=== PATIENT | female | born 1980 | race Caucasian/White ===

== ENCOUNTER 2018-02-26 07:12 | Emergency (ER) | payer BC, MEDICAID ==
[2018-02-26 07:28] VITALS: BP 121/86
--- NOTE | 2018-02-26 08:06 | ED ---
Throat Pain/Nasal Congestion - HPI Summary HPI Summary: positive history of sore throat for the last several days No fever or chills. able to drink liquids - History of Current Complaint Chief Complaint: UCRespiratory Hx Obtained From: Patient Onset/Duration: Lasting Days Severity: Moderate Associated Signs And Symptoms: Positive: Negative - Epiglottits Risk Factors Epiglottis Risk Factors: Negative - Allergies/Home Medications Allergies/Adverse Reactions: Allergies Allergy/AdvReac Type Severity Reaction Status Date / Time No Known Allergies Allergy Verified 02/26/18 07:19 Home Medications: Home Medications Atorvastatin* [Lipitor*] 10 mg PO DAILY 02/26/18 [History Confirmed 02/26/18] Ibuprofen TAB* [Advil TAB*] 400 mg PO Q6H PRN 02/26/18 [History Confirmed ] Norgestimate-Ethinyl Estradiol [Sprintec 28 0.25-35 mg-Mcg] 1 tab PO DAILY 02/26 [History Confirmed 02/26/18] Omeprazole CAP* [Prilosec CAP* 20 MG] 20 mg PO DAILY 02/26/18 [History Confirmed 02/26/18] PMH/Surg Hx/FS Hx/Imm Hx Previously Healthy: Yes - Cancer History Hx Chemotherapy: No Hx Radiation Therapy: No - Surgical History Surgery Procedure, Year, and Place: 2 C-SECTIONS. RUPTURED APPENDEX Infectious Disease History: No Infectious Disease History: Denies: Traveled Outside the [place] in Last 30 Days - Social History Alcohol Use: Occasionally Substance Use Type: Reports: None Smoking Status (MU): Former Smoker Review of Systems Constitutional: Negative Eyes: Negative ENT: Negative Cardiovascular: Negative Respiratory: Negative Gastrointestinal: Negative Genitourinary: Negative Musculoskeletal: Negative Skin: Negative Neurological: Negative Psychological: Normal All Other Systems Reviewed And Are Negative: Yes Physical Exam Triage Information Reviewed: Yes Vital Signs On Initial Exam: Initial Vitals Temp Pulse Resp BP Pulse Ox 36.4 C 85 16 121/86 98 02/26/18 07:22 02/26/18 07:22 02/26/18 07:22 02/26/18 07:22 02/26/18 07:22 Vital Signs Reviewed: Yes Appearance: Positive: Well-Appearing Skin: Positive: Warm, Dry Head/Face: Positive: Normal Head/Face Inspection Eyes: Positive: Normal ENT: Positive: Pharyngeal erythema Neck: Positive: Supple Respiratory/Lung Sounds: Positive: Clear to Auscultation Cardiovascular: Positive: Normal Abdomen Description: Positive: Nontender Bowel Sounds: Positive: Present Diagnostics - Vital Signs Vital Signs Temp Pulse Resp BP Pulse Ox 02/26/18 07:22 36.4 C 85 16 121/86 98 - Laboratory Lab Results: Lab Results 02/26/18 Range/Units 07:39 Group A Strep Rapid Positive A (Negative) Lab Statement: Any lab studies that have been ordered have been reviewed, and results considered in the medical decision making process. EENT Course/Dx - Diagnoses Provider Diagnoses: Strep pharyngitis Provider Diagnoses: (Ruled Out): Strep pharyngitis with scarlet fever Discharge - Sign-Out/Discharge Documenting (check all that apply): Patient Departure All imaging exams completed and their final reports reviewed: Yes - Discharge Plan Condition: Good Disposition: HOME Prescriptions: Cephalexin CAP* [Keflex 500 CAP*] 500 mg PO TID #30 cap Patient Education Materials: Strep Throat (DC) Referrals: Alexander Priest MD [Primary Care Provider] - - Billing Disposition and Condition Condition: GOOD Disposition: Home
== END 2018-02-26 08:11 | disposition home or self-care (01) ==
LOC: UCCORT 07:12
DX: J02.0 Streptococcal pharyngitis (principal); A38.9 Scarlet fever, uncomplicated; Z87.891 Personal history of nicotine dependence
CPT/HCPCS: 87651; 99212; G0463

== ENCOUNTER 2018-06-04 09:07 | Emergency (ER) | payer MEDICAID, OTHER ==
[2018-06-04 09:36] VITALS: BP 107/66
--- NOTE | 2018-06-04 12:48 | UC ---
Eye Complaint HPI - HPI Summary HPI Summary: Left eye redness and watering. No fever, vision change, contact lens use, photophobia or injury. 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 - History of Current Complaint Chief Complaint: UCEye Stated Complaint: LEFT EYE COMPLAINT Time Seen by Provider: 06/04/18 09:28 Hx Obtained From: Patient Hx Last Menstrual Period: 05/19/18 Onset/Duration: Gradual Onset, Lasting Hours Timing: Constant Severity Initially: Mild Severity Currently: Mild Pain Intensity: 0 Location of Injury: Conjunctiva Character: Dull Aggravating Factor(s): Nothing Alleviating Factor(s): Nothing Associated Signs And Symptoms: Positive: Drainage (Clear). Negative: Photophobia, Drainage (Purulent), Vision Impairment Bilateral, Vision Impairment Right, Vision Impairment Left, Fever, Swelling - Allergies/Home Medications Allergies/Adverse Reactions: Allergies Allergy/AdvReac Type Severity Reaction Status Date / Time No Known Allergies Allergy Verified 06/04/18 09:32 PMH/Surg Hx/FS Hx/Imm Hx Previously Healthy: No - Surgical History Surgical History: Yes Surgery Procedure, Year, and Place: 2 C-SECTIONS. RUPTURED APPENDEX - Family History Known Family History: Positive: Non-Contributory - Social History Occupation: Employed Full-time Alcohol Use: Occasionally Substance Use Type: None Smoking Status (MU): Former Smoker When Did the Patient Quit Smoking/Using Tobacco: 2014 Review of Systems All Other Systems Reviewed And Are Negative: Yes Eyes: Positive: Eye Redness Physical Exam Triage Information Reviewed: Yes Appearance: Well-Appearing, No Pain Distress, Well-Nourished Vital Signs: Initial Vital Signs Temp 97.9 F 06/04/18 09:33 Pulse 81 06/04/18 09:33 Resp 15 06/04/18 09:33 BP 107/66 06/04/18 09:33 Pulse Ox 100 06/04/18 09:33 Vital Signs Reviewed: Yes Eyes: Positive: Conjunctiva Inflamed. Negative: Discharge ENT: Positive: Normal ENT inspection, Pharynx normal. Negative: Pharyngeal erythema, Nasal congestion, Nasal drainage Neck exam: Normal Neck: Positive: Supple, Nontender, No Lymphadenopathy Respiratory: Positive: Lungs clear, Normal breath sounds, No respiratory distress, No accessory muscle use. Negative: Respiratory distress Cardiovascular: Positive: No Murmur, Pulses Normal, Brisk Capillary Refill Abdomen Description: Positive: No Organomegaly. Negative: Distended, Guarding Musculoskeletal: Positive: Strength Intact, ROM Intact, No Edema Neurological: Positive: Alert, Muscle Tone Normal, Fatigued Psychological: Positive: Age Appropriate Behavior Skin: Negative: Rashes Eye Complaint Course/Dx - Differential Dx/Diagnosis Differential Diagnosis/HQI/PQRI: Corneal Abrasion, Detached Retina, Foreign Body , Glaucoma, Hyphema, Keratitis, Penetrating Injury, Periorbital Cellulitis, Orbital Cellulitis, Uveitis Provider Diagnosis: Conjunctivitis Discharge - Sign-Out/Discharge Documenting (check all that apply): Patient Departure All imaging exams completed and their final reports reviewed: No Studies - Discharge Plan Condition: Good Disposition: HOME Prescriptions: Ciprofloxacin 0.3% OPTH.MICHAEL* [Cipro 0.3% Opth*] 2 drop BOTH EYES Q4H #1 btl Patient Education Materials: Conjunctivitis (ED) Referrals: Alexander Priest MD [Primary Care Provider] - If Needed - Billing Disposition and Condition Condition: GOOD Disposition: Home
== END 2018-06-04 10:06 | disposition home or self-care (01) ==
LOC: UCCORT 09:07
DX: H10.9 Unspecified conjunctivitis (principal); Z87.891 Personal history of nicotine dependence
CPT/HCPCS: 99212; G0463

== ENCOUNTER 2018-06-26 08:42 | Emergency (ER) | payer BC, MEDICAID, OTHER ==
[2018-06-26 09:02] VITALS: BP 112/82
--- NOTE | 2018-06-26 09:06 | UC ---
Eye Complaint HPI - HPI Summary HPI Summary: 37 y/o female presents to the urgent care c/o left eye redness and yellowish drainage for the past 2 days. This morning she woke up w/ crusting yellowish discharge and unable to open up. She had similar symptoms about 2 weeks ago and was Tx w/ ophthalmic antibiotic drops and symptoms resolved. Now symptoms returned. Pt denies photophobia, eye pain, contact use, JORGENSEN, dizziness, fever, SOB, chest pain, abdominal pain, N/V/D - History of Current Complaint Chief Complaint: UCEye Stated Complaint: LEFT EYE COMPLAINT Time Seen by Provider: 06/26/18 09:04 Hx Obtained From: Patient Hx Last Menstrual Period: 06/12/18 ?: No Onset/Duration: Gradual Onset, Lasting Days - 2 days, Still Present, Worse Since - today Timing: Constant Severity Initially: Mild Severity Currently: Moderate Pain Intensity: 0 Pain Scale Used: 0-10 Numeric Location of Injury: Conjunctiva - left w/ yellowish crusting Character: Foreign Body Sensation Aggravating Factor(s): Blinking Alleviating Factor(s): Nothing Associated Signs And Symptoms: Positive: Drainage (Purulent) - left eye. Negative: Fever, Swelling Related History: Similar Episode - about 3 weeks w/ Bacterial conjunctivitis - Risk Factors Penetrating Injury Risk Factor: Negative Globe Rupture Risk Factors: Negative Acute Glaucoma Risk Factors: Negative Optic Artery Occlusion Risk Factors: Negative - Allergies/Home Medications Allergies/Adverse Reactions: Allergies Allergy/AdvReac Type Severity Reaction Status Date / Time No Known Allergies Allergy Verified 06/04/18 09:32 PMH/Surg Hx/FS Hx/Imm Hx Previously Healthy: Yes - Pt denies PMHX - Surgical History Surgical History: Yes Surgery Procedure, Year, and Place: 2 C-SECTIONS. RUPTURED APPENDEX - Family History Known Family History: Positive: Cardiac Disease, Hypertension, Non-Contributory Family History: Dyslipidemia - Social History Occupation: Employed Full-time Lives: With Family Alcohol Use: Occasionally Substance Use Type: None Smoking Status (MU): Former Smoker When Did the Patient Quit Smoking/Using Tobacco: 2014 Review of Systems All Other Systems Reviewed And Are Negative: Yes Constitutional: Positive: Negative Skin: Positive: Negative Eyes: Positive: Drainage - yellowish, Eye Redness - Rt eye injected ENT: Positive: Negative, Nasal Discharge - yellowish Respiratory: Positive: Negative Cardiovascular: Positive: Negative Gastrointestinal: Positive: Negative Genitourinary: Positive: Negative Motor: Positive: Negative Neurovascular: Positive: Negative Musculoskeletal: Positive: Negative Neurological: Positive: Negative Psychological: Positive: Negative Is Patient Immunocompromised?: No Physical Exam - Summary Physical Exam Summary: Vital Signs Reviewed: Yes General: Well appearing, well nourished female in no apparent pain distress Eyes: Positive: LF Conjunctiva Inflamed - Visual acuity: WNL,Visual ramirez: full to confrontation. PERRLA, EOMI intact w/out limitation or complaint of pain. LF eyelashes yellowish crusting and yellowish drainage observed. No ciliary flush. No chemosis, No photophobia. Normal fundoscopic exam; no proptosis, exophthalmos, nystagmus. ENT: Positive: Normal ENT inspection, Hearing grossly normal, Pharynx normal, Nasal congestion, Nasal drainage - clear, TMs normal - B/L external ear canal clear , TM's WNL. Negative: Tonsillar swelling, Tonsillar exudate Neck: Positive: Supple, Nontender, No Lymphadenopathy Respiratory: Positive: Chest nontender, Lungs clear, Normal breath sounds, No respiratory distress Cardiovascular: Positive: RRR, No Murmur, Pulses Normal, Brisk Capillary Refill Abdomen Description: Positive: Nontender, No Organomegaly, Soft. Negative: CVA Tenderness (R), CVA Tenderness (L) Bowel Sounds: Positive: Present Musculoskeletal: Positive: Strength Intact, ROM Intact, No Edema Neurological Exam: Normal Psychological Exam: Normal Skin Exam: Normal Triage Information Reviewed: Yes Vital Signs: Initial Vital Signs Temp 97.6 F 06/26/18 08:59 Pulse 79 06/26/18 08:59 Resp 14 06/26/18 08:59 BP 112/82 06/26/18 08:59 Pulse Ox 100 06/26/18 08:59 Eye Complaint Course/Dx - Course Course Of Treatment: 37 y/o female presents to the urgent care c/o left eye redness and yellowish drainage for the past 2 days. This morning she woke up w / crusting yellowish discharge and unable to open up. She had similar symptoms about 2 weeks ago and was Tx w/ ophthalmic antibiotic drops and symptoms resolved. Now symptoms returned. Pt denies photophobia, eye pain, contact use, JORGENSEN, dizziness, fever, SOB, chest pain, abdominal pain, N/V/D. Hx obtained. Pt w / LF eye w/ acute bacterial conjunctivitis on examination. Pt Rx Polytrim ophthalmic drops and advised if symptoms do not improve or worsen to f/u with [employer] Dr Sanchez if not improvement of symptoms. Pt understood and agreed w/ plan of care. - Differential Dx/Diagnosis Differential Diagnosis/HQI/PQRI: Conjunctivitis, Penetrating Injury, Periorbital Cellulitis, Uveitis Provider Diagnosis: Conjunctivitis, left eye Discharge - Sign-Out/Discharge Documenting (check all that apply): Patient Departure - D/c home All imaging exams completed and their final reports reviewed: No Studies - Discharge Plan Condition: Stable Disposition: HOME Prescriptions: Polymyx/Trimethoprim OPTH* [Polytrim OPHTH*] 1 drop LEFT EYE Q3H #1 btl Patient Education Materials: Conjunctivitis (ED) Forms: *Work Release Referrals: Mirna Sanchez MD [Medical Doctor] - If Needed Melchor Alexadnra DO [Primary Care Provider] - 3 Days Additional Instructions: 1-Please apply ophthalmic drops as instructed and finish the full course of treatment to avoid recurrent infection. Encourage hand washing to avoid spread 2-If you do not improve or if symptoms worsen please f/u with car chaser Dr Sanchez in 3 days for further evaluation and treatment - Billing Disposition and Condition Condition: STABLE Disposition: Home
== END 2018-06-26 09:29 | disposition home or self-care (01) ==
LOC: UCCORT 08:42
DX: H10.9 Unspecified conjunctivitis (principal); Z87.891 Personal history of nicotine dependence
CPT/HCPCS: 99212; G0463

== ENCOUNTER 2018-08-11 07:15 | Emergency (ER) | payer OTHER ==
[2018-08-11 07:37] VITALS: BP 108/78
--- NOTE | 2018-08-11 07:59 | ED ---
Throat Pain/Nasal Congestion - HPI Summary HPI Summary: 37 yr old female with yellow drainage, irritation, and crusty yellow on left eyelids. She works in a pre school. She has been having irritation over the past day and then drainage overnight to the left eye only. No pain or change in vision. She has gotten pink eye two other times this winter at the day care. She does not wear contact lenses. - History of Current Complaint Chief Complaint: UCEye Time Seen by Provider: 08/11/18 07:42 - Allergies/Home Medications Allergies/Adverse Reactions: Allergies Allergy/AdvReac Type Severity Reaction Status Date / Time No Known Allergies Allergy Verified 08/11/18 07:27 PMH/Surg Hx/FS Hx/Imm Hx - Cancer History Hx Chemotherapy: No Hx Radiation Therapy: No - Surgical History Surgery Procedure, Year, and Place: 2 C-SECTIONS. RUPTURED APPENDEX Infectious Disease History: No Infectious Disease History: Denies: Traveled Outside the [place] in Last 30 Days - Family History Known Family History: Positive: Cardiac Disease, Hypertension, Non-Contributory Family History: Dyslipidemia - Social History Occupation: Employed Full-time Lives: With Family Alcohol Use: Occasionally Substance Use Type: Reports: None Smoking Status (MU): Former Smoker Review of Systems Constitutional: Negative Positive: Drainage, Erythema All Other Systems Reviewed And Are Negative: Yes Physical Exam Triage Information Reviewed: Yes Vital Signs On Initial Exam: Initial Vitals Temp Pulse Resp BP Pulse Ox 98 F 77 16 108/78 99 08/11/18 07:28 08/11/18 07:28 08/11/18 07:28 08/11/18 07:28 08/11/18 07:28 Vital Signs Reviewed: Yes Appearance: Positive: Well-Appearing, No Pain Distress Skin: Positive: Warm, Skin Color Reflects Adequate Perfusion Head/Face: Positive: Normal Head/Face Inspection Eyes: Positive: EOMI, GERMAN, Conjunctiva Inflammed - left, Discharge - left ENT: Positive: Pharynx normal, TMs normal Neck: Positive: Nontender Respiratory/Lung Sounds: Positive: Clear to Auscultation, Breath Sounds Present Cardiovascular: Positive: RRR. Negative: Murmur Abdomen Description: Negative: Distended Musculoskeletal: Positive: Strength/ROM Intact Neurological: Positive: Sensory/Motor Intact, Alert, Oriented to Person Place, Time, CN Intact II-III, Normal Gait, Speech Normal Diagnostics - Vital Signs Vital Signs Temp Pulse Resp BP Pulse Ox 08/11/18 07:28 98 F 77 16 108/78 99 - Laboratory Lab Statement: Any lab studies that have been ordered have been reviewed, and results considered in the medical decision making process. EENT Course/Dx - Course Course Of Treatment: 37 yr old with conjunctivitis. Rx with bleph 10. - Diagnoses Provider Diagnoses: Conjunctivitis Discharge - Sign-Out/Discharge Documenting (check all that apply): Patient Departure All imaging exams completed and their final reports reviewed: No Studies - Discharge Plan Condition: Good Disposition: HOME Prescriptions: Sulfacetamide 10 % OPTH.MICHAEL* [Sulamyd 10% Opth*] 1 drop BOTH EYES Q4H #1 btl Patient Education Materials: Conjunctivitis (ED) Referrals: Marc Pérez MD [Primary Care Provider] - 2 Days - Billing Disposition and Condition Condition: GOOD Disposition: Home
== END 2018-08-11 08:03 | disposition home or self-care (01) ==
LOC: UCCORT 07:15
DX: H10.9 Unspecified conjunctivitis (principal); Z87.891 Personal history of nicotine dependence
CPT/HCPCS: 99212; G0463

== ENCOUNTER 2019-02-26 08:15 | Emergency (ER) | payer OTHER ==
[2019-02-26 08:37] VITALS: BP 135/86
--- NOTE | 2019-02-26 08:46 | UC ---
Throat Pain/Nasal Rajat HPI - HPI Summary HPI Summary: c/o sore throat that started Wednesday. 2- area on neck, red and te-moak that started a couple weeks ago. - History of Current Complaint Chief Complaint: UCRespiratory Stated Complaint: THROAT COMPLAINT Time Seen by Provider: 02/26/19 08:38 Hx Obtained From: Patient Hx Last Menstrual Period: 02/17/19 ?: No Onset/Duration: Sudden Onset, Lasting Days Severity: Severe Pain Intensity: 7 Associated Signs & Symptoms: Positive: Dysphagia - Allergies/Home Medications Allergies/Adverse Reactions: Allergies Allergy/AdvReac Type Severity Reaction Status Date / Time No Known Allergies Allergy Verified 02/26/19 08:31 PMH/Surg Hx/FS Hx/Imm Hx Previously Healthy: Yes - Surgical History Surgical History: Yes Surgery Procedure, Year, and Place: 2 C-SECTIONS. RUPTURED APPENDEX - Family History Known Family History: Positive: Cardiac Disease, Hypertension, Non-Contributory Family History: Dyslipidemia - Social History Alcohol Use: Occasionally Substance Use Type: None Smoking Status (MU): Former Smoker When Did the Patient Quit Smoking/Using Tobacco: 2014 Review of Systems All Other Systems Reviewed And Are Negative: Yes Skin: Positive: Other - red spot on neck ENT: Positive: Sore Throat Is Patient Immunocompromised?: No Physical Exam Triage Information Reviewed: Yes Appearance: Well-Appearing, Well-Nourished, Pain Distress Vital Signs: Initial Vital Signs Temp 98.6 F 02/26/19 08:32 Pulse 96 02/26/19 08:32 Resp 15 02/26/19 08:32 BP 135/86 02/26/19 08:32 Pulse Ox 100 02/26/19 08:32 Vital Signs Reviewed: Yes Eye Exam: Normal ENT: Positive: Pharyngeal erythema, TM bulging - bilateral Dental Exam: Normal Neck exam: Normal Respiratory Exam: Normal Cardiovascular Exam: Normal Abdominal Exam: Normal Bowel Sounds: Positive: Present Musculoskeletal Exam: Normal Neurological Exam: Normal Skin: Positive: Other - cesar sized erythemic area with a white central area noted on front of neck Throat Pain/Nasal Course/Dx - Course Course Of Treatment: hx obtained, exam performed ,meds reviewed, rapid strep obtained. - Differential Dx/Diagnosis Differential Diagnosis/HQI/PQRI: Laryngitis, Pharyngitis, Sinusitis, URI Provider Diagnosis: Tinea corporis, Pharyngitis Discharge ED - Sign-Out/Discharge Documenting (check all that apply): Patient Departure All imaging exams completed and their final reports reviewed: No Studies - Discharge Plan Condition: Stable Disposition: HOME Prescriptions: Clotrimazole 1% TOPICAL (NF) [Lotrimin 1% TOPICAL (NF)] 1 applic TOPICAL BID PRN #1 tube PRN Reason: Rash Patient Education Materials: Tinea Corporis (ED), Pharyngitis (ED) Referrals: Liv Arellano MD [Primary Care Provider] - Additional Instructions: 1. use the Clotriamezole as prescribed. twice a day for 4 weeks 2. Coconut oil as well to the lesion 3. Warm fluid and salt water gargles. 4. SHould improve in 7-10 days, follow up if symtpoms become unmanageable - Billing Disposition and Condition Condition: STABLE Disposition: Home - Attestation Statements Provider Attestation: I was available for consult. This patient was seen by the [facility]. The patient was not presented to , seen by or examined by [place] -Jason Saldivar MD
== END 2019-02-26 09:21 | disposition home or self-care (01) ==
LOC: UCCORT 08:15
DX: B35.4 Tinea corporis (principal); J02.9 Acute pharyngitis, unspecified; R13.10 Dysphagia, unspecified; Z87.891 Personal history of nicotine dependence
CPT/HCPCS: 87651; 99212; G0463